=== PATIENT | male | born 1980 | race Caucasian/White ===

== ENCOUNTER 2018-01-22 20:58 | Emergency (ER) | payer MEDICAID, OTHER ==
[~2018-01-22] VITALS: Ht 190.5 cm; Wt 81.6 kg
[2018-01-22] MEDS ORDERED: ONDANSETRON HCL/PF 4 MG/2 ML VIAL ONE (21:38)
[2018-01-22] MEDS ORDERED: MORPHINE SULFATE INJ 4 MG/ML DISP.SYRIN ONE (21:38)
--- NOTE | 2018-01-22 21:48 | NUR ---
20G LEFT AC IV STARTED, BLOOD SAMPLE OBTAINED AND SENT TO LAB. MEDICATED PT ORDERED
[2018-01-22 21:54] LABS: BASOPHILS % (AUTO) 0.4 % (0.0-2.0); HEMATOCRIT 42 % (39-51); HEMOGLOBIN 14.4 g/dL (13.5-17.5); LYMPHOCYTES # (AUTO) 2.8 /CMM (0.8-4.8); LYMPHOCYTES % (AUTO) 29.1 % (20.0-44.0); MEAN CORPUSCULAR HGB CONC 34 g/dl (31.0-36.0); MEAN CORPUSCULAR VOLUME 99 fL (80-96); MONOCYTES # (AUTO) 0.7 /CMM (0.1-1.30); MONOCYTES % (AUTO) 6.9 % (2.0-12.0); NEUTROPHILS % (AUTO) 62.6 % (43.0-81.0); PLATELET COUNT (AUTO) 177 /CMM (150-450); RDW COEFFICIENT OF VARIATION 13.8 (11.5-15.0); RED BLOOD CELL COUNT(AUTO) 4.26 MIL/uL (4.5-6.0); WHITE BLOOD COUNT (AUTO) 9.5 K/uL (4.3-11.0)
[2018-01-22] MEDS ORDERED: MORPHINE SULFATE INJ 2 MG/ML DISP.SYRIN IV ONE (22:00)
[2018-01-22] MEDS ORDERED: ONDANSETRON HCL/PF 4 MG/2 ML VIAL IVP ONE (22:00)
[2018-01-22] MEDS ORDERED: IV NS 0.9% 1,000 ML BAG IV ONE (22:00)
[2018-01-22 22:05] LABS: CALCIUM, SERUM 9.4 mg/dL (8.5-10.1); CREATININE 1.1 mg/dL (0.6-1.3); POTASSIUM 3.7 mmol/L (3.5-5.1)
[2018-01-22 22:11] LABS: ALBUMIN 3.8 g/dL (3.4-5.0); BILIRUBIN,DIRECT 0.2 mg/dL (0.0-0.2); BILIRUBIN,TOTAL 0.8 mg/dL (0.2-1.0); TOTAL PROTEIN, SERUM 7.4 g/dL (6.4-8.2)
[2018-01-22 22:56] LABS: APPEARANCE,URINE CLEAR (CLEAR); BILIRUBIN,URINE NEGATIVE (NEGATIVE); BLOOD, URINE NEGATIVE Ery/uL (NEGATIVE); COLOR,URINE YELLOW (YELLOW); KETONES,URINE NEGATIVE (NEGATIVE); LEUKOCYTE ESTERASE ,URINE NEGATIVE (NEGATIVE); NITRITE, URINE NEGATIVE (NEGATIVE); PH,URINE 6.5 (5.0-8.0); PROTEIN,URINE NEGATIVE (NEGATIVE); UGLUCOSE NEGATIVE (NEGATIVE); UROBILINOGEN,URINE 0.2 EU/dL (0.2)
[2018-01-22 23:24] LABS: INR 0.96 (0.87-1.13)
[2018-01-22] MEDS ORDERED: CT SWABBABLE VALVE TRANS SET 1 EA INFUS.SET MC ONE (23:35)
[2018-01-22] MEDS ORDERED: IV NS 0.9% 500 ML IV ONE (23:35)
[2018-01-22] MEDS ORDERED: IOHEXOL-300 100 ML VIAL IV ONE (23:35)
[2018-01-23] MEDS ORDERED: PIPERACILLIN /TAZOBACTAM 3.375 G in IV D5W 50 ML IV ONE (00:30)
[2018-01-23] MEDS ORDERED: IV NS 0.9% 1,000 ML BAG IV ONE (00:30)
[2018-01-23] MEDS ORDERED: PIPERACILLIN /TAZOBACTAM 3.375 G VIAL IV ONE (00:31)
--- NOTE | 2018-01-23 00:45 | NUR ---
CXR AT BEDSIDE. IV FLDS W/ ANTIBIOTICS STARTED ORDERED.
--- NOTE | 2018-01-23 01:03 | NUR ---
ZOSYN 3.375G IVPB COMPLETED.
--- NOTE | 2018-01-23 01:30 | NUR ---
NS IVB 1000ML COMPLETED.
--- NOTE | 2018-01-23 02:37 | NUR ---
mission comminuty ms [phone]. a [phone] [facility] trip number; [id number]
--- NOTE | 2018-01-23 02:42 | NUR ---
matteo RAMIRES took report
[2018-01-23 03:00] VITALS: BP 114/75
[2018-01-23] MEDS ORDERED: HYDROMORPHONE 1 MG/1 ML DISP.SYRIN IV ONE (03:00)
--- NOTE | 2018-01-23 03:51 | NUR ---
report was given to emt for transport
== END 2018-01-23 03:52 | disposition short-term general hospital (02) ==
LOC: ER 21:01
DX: K35.80 Unspecified acute appendicitis (principal); Z01.818 Encounter for other preprocedural examination
CPT/HCPCS: 36415; 71045-TC; 80048-TC; 80076-TC; 81000-TC; 83690-TC; 85025-TC; 85730-TC; 87081-TC; A4606; J2270; J2405; J2543; J7030; J7040; J7060; Q9967; Z7610

== ENCOUNTER 2018-10-05 18:29 | Emergency (ER) | payer OTHER ==
[~2018-10-05] VITALS: Ht 190.5 cm; Wt 90.3 kg
--- NOTE | 2018-10-05 19:24 | NUR ---
PT WAS CLEANING HIS [employer] AND DIDN'T REALIZE THAT IT WAS STILL PLUGGED IN. PT'S LEFT HAND 1ST AND 2ND FINGERS HAS SMALL LACS. PT WAS TAKEN TO [id number].
--- NOTE | 2018-10-05 19:27 | NUR ---
WOUND CARE IN PROGRESS.
--- NOTE | 2018-10-05 19:28 | NUR ---
EPatient discharged to home in stable condition. Written and verbal after care instructions given. Patient verbalizes understanding of instruction. PT AMBULATED OUT WITH A STEADY GAIT. VSS.
[2018-10-05 19:31] VITALS: BP 115/85
== END 2018-10-05 19:31 | disposition home or self-care (01) ==
LOC: ER 18:33
DX: S61.211A Laceration without foreign body of left index finger without damage to nail, initial encounter (principal); S61.213A Laceration without foreign body of left middle finger without damage to nail, initial encounter; W31.89XA Contact with other specified machinery, initial encounter; Y93.89 Activity, other specified; Y92.89 Other specified places as the place of occurrence of the external cause; Y99.8 Other external cause status
CPT/HCPCS: 12001; 99283; A4606; A6402

== ENCOUNTER 2019-03-31 14:55 | Emergency (ER) | payer MEDICAID, OTHER ==
[~2019-03-31] VITALS: Ht 188 cm; Wt 93.4 kg
--- NOTE | 2019-03-31 15:05 | NUR ---
L SIDED CHEST PAIN SINCE THIS AM UPON WAKING UP. PATIENT A/OX4, NAD, VSS. NO SOB NOTED. ATTACHED TO THE BIT TAPPER. CHANGED INTO DOWN. WAITING FOR MD MORGAN.
--- NOTE | 2019-03-31 15:30 | NUR ---
FRIENDS AT BEDSIDE. PATIENT IN NO DSITRESS. VSS.
[2019-03-31 15:31] LABS: BASOPHILS % (AUTO) 0.5 % (0.0-2.0); EOSINOPHILS % (AUTO) 0.5 % (0.0-6.0); HEMATOCRIT 48 % (39-51); HEMOGLOBIN 16.6 g/dL (13.5-17.5); LYMPHOCYTES # (AUTO) 1.5 /CMM (0.8-4.8); MEAN CORPUSCULAR HGB CONC 35 g/dl (31.0-36.0); MEAN CORPUSCULAR VOLUME 100 fL (80-96); MONOCYTES # (AUTO) 0.6 /CMM (0.1-1.30); MONOCYTES % (AUTO) 8.5 % (2.0-12.0); NEUTROPHILS # (AUTO) 5.1 /CMM (1.8-8.9); NEUTROPHILS % (AUTO) 69.5 % (43.0-81.0); PLATELET COUNT (AUTO) 173 /CMM (150-450); RED BLOOD CELL COUNT(AUTO) 4.76 MIL/uL (4.5-6.0); WHITE BLOOD COUNT (AUTO) 7.3 K/uL (4.3-11.0)
[2019-03-31 15:40] LABS: CALCIUM, SERUM 9.1 mg/dL (8.5-10.1); CARBON DIOXIDE 28 mmol/L (21-32); CHLORIDE 101 mmol/L (98-107); GLUCOSE 93 mg/dL (74-106); POTASSIUM 3.9 mmol/L (3.5-5.1); SODIUM SERUM 140 mmol/L (136-145); UREA NITROGEN, BLOOD 13 mg/dL (7-18)
[2019-03-31 15:45] LABS: ALANINE AMINOTRANSFERASE 57 U/L (12-78); ALBUMIN 4.2 g/dL (3.4-5.0); ALKALINE PHOSPHATASE 91 U/L (46-116); ASPARTATE AMINOTRANSFERASE 56 U/L (15-37); BILIRUBIN,DIRECT 0.3 mg/dL (0.0-0.2); BILIRUBIN,TOTAL 2.3 mg/dL (0.2-1.0); TOTAL PROTEIN, SERUM 7.9 g/dL (6.4-8.2)
--- NOTE | 2019-03-31 18:28 | NUR ---
PATIENT DENIES PAIN AT THIS TIME. IV removed. Catheter intact and site benign. Pressure and 4x4 applied to site. No bleeding noted. DPatient discharged to home in stable condition. Written and verbal after care instructions given. Patient verbalizes understanding of instruction.
[2019-03-31 18:32] VITALS: BP 120/67
== END 2019-03-31 18:33 | disposition home or self-care (01) ==
LOC: ER 14:57
DX: R07.89 Other chest pain (principal); R74.0 Nonspecific elevation of levels of transaminase and lactic acid dehydrogenase [LDH]; F10.10 Alcohol abuse, uncomplicated; Z90.89 Acquired absence of other organs; Y90.9 Presence of alcohol in blood, level not specified
CPT/HCPCS: 36415; 71045-TC; 76705-TC; 80048-TC; 80076-TC; 83690-TC; 84484-TC; 85025-TC; 85378-TC

== ENCOUNTER 2020-04-29 01:44 | Emergency (ER) | payer MEDICAID ==
[~2020-04-29] VITALS: Ht 195.6 cm; Wt 90.7 kg
--- NOTE | 2020-04-29 01:44 | NUR ---
C/O INTERMITENT L SIDED CPWITH L RM WEAKNESS AND MILD L SIDED NECK PAIN SINCE 0900. pt awake, alert, -sob, nad noted, vss, pending md amos
[2020-04-29 02:29] LABS: BASOPHILS % (AUTO) 0.3 % (0.0-2.0); EOSINOPHILS % (AUTO) 0.9 % (0.0-6.0); HEMATOCRIT 47 % (39-51); HEMOGLOBIN 15.6 g/dL (13.5-17.5); LYMPHOCYTES % (AUTO) 31.6 % (20.0-44.0); MEAN CORPUSCULAR HGB CONC 34 g/dl (31.0-36.0); MEAN CORPUSCULAR VOLUME 103 fL (80-96); MONOCYTES # (AUTO) 0.7 /CMM (0.1-1.30); MONOCYTES % (AUTO) 7.2 % (2.0-12.0); NEUTROPHILS # (AUTO) 5.7 /CMM (1.8-8.9); PLATELET COUNT (AUTO) 166 /CMM (150-450); RED BLOOD CELL COUNT(AUTO) 4.53 MIL/uL (4.5-6.0); WHITE BLOOD COUNT (AUTO) 9.6 K/uL (4.3-11.0)
[2020-04-29 02:35] LABS: CARBON DIOXIDE 28 mmol/L (21-32); CHLORIDE 102 mmol/L (98-107); CREATININE 0.9 mg/dL (0.6-1.3); GLUCOSE 94 mg/dL (74-106); POTASSIUM 3.6 mmol/L (3.5-5.1); SODIUM SERUM 138 mmol/L (136-145); UREA NITROGEN, BLOOD 11 mg/dL (7-18)
[2020-04-29] MEDS ORDERED: KETOROLAC TROMETHAMINE INJ 30 MG/ML VIAL IV ONE (03:00)
[2020-04-29] MEDS ORDERED: KETOROLAC TROMETHAMINE 15 MG/ML VIAL ONE (03:15)
--- NOTE | 2020-04-29 03:38 | NUR ---
Patient discharged to home in stable condition. Written and verbal after care instructions given. Patient verbalizes understanding of instruction. IV removed. Catheter intact and site benign. Pressure and 4x4 applied to site. No bleeding noted.
[2020-04-29 03:40] VITALS: BP 155/82
== END 2020-04-29 03:40 | disposition home or self-care (01) ==
LOC: ER 01:46
DX: R07.89 Other chest pain (principal); R20.2 Paresthesia of skin; Z90.89 Acquired absence of other organs
CPT/HCPCS: 36415; 71045; 80048; 84484; 85025; 93005 ×2; 96374; 99285; J1885

== ENCOUNTER 2024-05-15 16:21 | Emergency (ER) | payer MEDICAID | END 2024-05-15 17:17 | disposition home or self-care (01) | LOC: ER 16:21 | DX: R12 Heartburn (principal); Z53.21 Procedure and treatment not carried out due to patient leaving prior to being seen by health care provider ==

== ENCOUNTER 2024-07-02 00:13 | Emergency (ER) | payer MEDICAID ==
[~2024-07-02] VITALS: Ht 193 cm; Wt 90.7 kg
[2024-07-02] MEDS ORDERED: HYDROCODONE/APAP 5/325MG TABLET ONE (01:08)
[2024-07-02] MEDS: HYDROCODONE/APAP 5/325MG TABLET PO ONE (01:12)
[2024-07-02] MEDS ORDERED: HYDR-4303 PO (02:10)
[2024-07-02 02:43] VITALS: BP 121/80; TEMP 97.7; O2SAT 97
== END 2024-07-02 02:44 | disposition home or self-care (01) ==
LOC: ER 00:16
DX: S82.842A Displaced bimalleolar fracture of left lower leg, initial encounter for closed fracture (principal); Z90.49 Acquired absence of other specified parts of digestive tract; Z79.899 Other long term (current) drug therapy; W10.8XXA Fall (on) (from) other stairs and steps, initial encounter; Y93.89 Activity, other specified; Y92.89 Other specified places as the place of occurrence of the external cause; Y99.8 Other external cause status
CPT/HCPCS: 73610-TC